=== PATIENT | female | born 1970 | race Caucasian/White ===

== ENCOUNTER → 2017-02-26 | Outpatient (CLI) | payer MEDICARE ==
[~2017-02-26] MED LIST: AMLO10TA2 PO; ASPI-496 PO; DIME50TA25 PO; HYDR200T PO; PRAV20TA2 PO; REGADENOSON 0.4 MG/5 ML SYRINGE ONE
== END | disposition home or self-care (01) ==
LOC: CFH 11:42
PROVIDERS: ATTEND Internal Medicine Cardiovascular Disease
DX: Z01.810 Encounter for preprocedural cardiovascular examination (principal); I25.10 Atherosclerotic heart disease of native coronary artery without angina pectoris; I10 Essential (primary) hypertension; R07.9 Chest pain, unspecified
CPT/HCPCS: 78452; 93017; J2785; A9502

== ENCOUNTER 2017-10-08 09:29 | Emergency (ER) | payer MEDICARE ==
[~2017-10-08] VITALS: Ht 160 cm; Wt 121.8 kg
[~2017-10-08 09:29] MED LIST changes: -REGADENOSON 0.4 MG/5 ML SYRINGE ONE
[2017-10-08 09:33] VITALS: BP 148/97
== END 2017-10-08 12:57 | disposition home or self-care (01) ==
LOC: ED 12:51
DX: S86.911A Strain of unspecified muscle(s) and tendon(s) at lower leg level, right leg, initial encounter (principal); I10 Essential (primary) hypertension; X58.XXXA Exposure to other specified factors, initial encounter; Y93.89 Activity, other specified; Y92.89 Other specified places as the place of occurrence of the external cause; Y99.9 Unspecified external cause status
CPT/HCPCS: 99284

== ENCOUNTER → 2017-11-20 | Outpatient (CLI) | payer MEDICARE | LOC: CVU 12:22 | PROVIDERS: ATTEND Internal Medicine Cardiovascular Disease | DX: I10 Essential (primary) hypertension (principal); E78.5 Hyperlipidemia, unspecified | CPT/HCPCS: 93306 ==

== ENCOUNTER 2018-01-26 18:53 | Emergency (ER) | payer MEDICARE ==
[~2018-01-26] VITALS: Ht 160 cm; Wt 123.6 kg
[~2018-01-26 18:53] MED LIST changes: -HYDR200T PO; +HYDR200T72 PO
[2018-01-26 19:36] LABS: BASOPHILS % (AUTO) 1 % (0-1); EOSINOPHILS % (AUTO) 0 % (1-7); LYMPHOCYTES % (AUTO) 24 % (22-44); MEAN CORPUSCULAR HEMOGLOBIN 29.5 pg (27.0-34.8); MEAN CORPUSCULAR HGB CONC 33.3 g/dL (32.4-35.8); MEAN CORPUSCULAR VOLUME 88.5 fL (80-100); MEAN PLATELET VOLUME 9.1 fL (7.4-10.4); MONOCYTES % (AUTO) 7 % (2-9); NEUTROPHILS # (AUTO) 5.11 x10^3/uL (1.8-6.8); NEUTROPHILS % (AUTO) 69 % (42-75); PLATELET COUNT 273 x10^3/uL (130-400); RED BLOOD COUNT 4.62 x10^6/uL (3.82-5.3); RED CELL DISTRIBUTION WIDTH 13.5 % (9.6-15.2)
[2018-01-26 19:37] LABS: BASOPHILS # (AUTO) 0.04 x10^3/uL (0-0.1); LYMPHOCYTES # (AUTO) 1.79 x10^3/uL (1-3.4); MD NO
[2018-01-26 19:49] LABS: ALBUMIN 3.3 g/dL (3.4-5.0); ANION GAP 7 mmol/L (5-15); CALCIUM 8.4 mg/dL (8.5-10.1); CHLORIDE 106 mmol/L (98-107); CREATININE 0.87 mg/dL (0.55-1.02)
[2018-01-26 19:53] LABS: TROPONIN I < 0.015 ng/mL (0.000-0.045)
[2018-01-26 19:57] VITALS: BP 116/65
== END 2018-01-26 20:49 | disposition home or self-care (01) ==
LOC: ED 19:42
DX: R07.89 Other chest pain (principal); I10 Essential (primary) hypertension
CPT/HCPCS: 36415; 71045; 80048; 82040; 84484; 85025; 93005; 99285

== ENCOUNTER 2018-09-14 09:06 | Emergency (ER) | payer MEDICARE ==
[~2018-09-14] VITALS: Ht 160 cm; Wt 128.0 kg
[~2018-09-14 09:06] MED LIST changes: -AMLO10TA2 PO; +AMLO10TA6 PO
[2018-09-14] MEDS ORDERED: ALBU0.63 NEB (09:34)
[2018-09-14 09:53] LABS: BASOPHILS # (AUTO) 0.04 x10^3/uL (0-0.1); BASOPHILS % (AUTO) 0 % (0-1); EOSINOPHILS # (AUTO) 0.02 x10^3/uL (0-0.4); EOSINOPHILS % (AUTO) 0 % (1-7); LYMPHOCYTES # (AUTO) 1.85 x10^3/uL (1-3.4); LYMPHOCYTES % (AUTO) 21 % (22-44); MD NO; MEAN CORPUSCULAR HEMOGLOBIN 29.8 pg (27.0-34.8); MEAN CORPUSCULAR HGB CONC 32.8 g/dL (32.4-35.8); MEAN CORPUSCULAR VOLUME 90.8 fL (80-100); MEAN PLATELET VOLUME 8.7 fL (7.4-10.4); MONOCYTES # (AUTO) 0.43 x10^3/uL (0.2-0.8); MONOCYTES % (AUTO) 5 % (2-9); NEUTROPHILS # (AUTO) 6.35 x10^3/uL (1.8-6.8); NEUTROPHILS % (AUTO) 73 % (42-75); PLATELET COUNT 265 x10^3/uL (130-400); RED BLOOD COUNT 4.61 x10^6/uL (3.82-5.3)
[2018-09-14 10:05] LABS: ALBUMIN 3.3 g/dL (3.4-5.0); ANION GAP 6 mmol/L (5-15); CALCIUM 8.3 mg/dL (8.5-10.1); CHLORIDE 108 mmol/L (98-107); CREATININE 0.75 mg/dL (0.55-1.02)
[2018-09-14 10:08] LABS: TROPONIN I < 0.015 ng/mL (0.000-0.045)
[2018-09-14 10:09] LABS: D-DIMER 0.31 ug/mlFEU (0.00-0.52); INTERNATIONAL NORMALIZED RATIO 0.98 (0.93-1.1); PROTHROMBIN TIME 10.4 Seconds (9.6-11.5)
[2018-09-14 10:51] VITALS: BP 115/71
== END 2018-09-14 12:02 | disposition home or self-care (01) ==
LOC: ED 10:14
DX: R06.00 Dyspnea, unspecified (principal); M54.6 Pain in thoracic spine; R07.89 Other chest pain; I10 Essential (primary) hypertension
CPT/HCPCS: 36415; 71045; 80048; 82040; 83880; 84484; 85025; 85379; 85610; 85730; 93005; 99284

== ENCOUNTER 2019-04-20 13:42 | Emergency (ER) | payer MEDICARE ==
[~2019-04-20] VITALS: Ht 160 cm; Wt 129.2 kg
[~2019-04-20 13:42] MED LIST changes: +ALBU0.63 NEB; -AMLO10TA6 PO; +AMLO10TA8 PO; -DIME50TA25 PO; +DIME50TA57 PO
[2019-04-20 14:44] LABS: BASOPHILS # (AUTO) 0.05 x10^3/uL (0-0.1); BASOPHILS % (AUTO) 1 % (0-1); EOSINOPHILS % (AUTO) 0 % (1-7); LYMPHOCYTES % (AUTO) 18 % (22-44); MD NO; MEAN CORPUSCULAR HEMOGLOBIN 30.6 pg (27.0-34.8); MEAN CORPUSCULAR HGB CONC 32.9 g/dL (32.4-35.8); MEAN CORPUSCULAR VOLUME 93.1 fL (80-100); MEAN PLATELET VOLUME 8.9 fL (7.4-10.4); MONOCYTES # (AUTO) 0.64 x10^3/uL (0.2-0.8); MONOCYTES % (AUTO) 7 % (2-9); NEUTROPHILS # (AUTO) 7.32 x10^3/uL (1.8-6.8); NEUTROPHILS % (AUTO) 75 % (42-75); PLATELET COUNT 270 x10^3/uL (130-400); RED BLOOD COUNT 4.67 x10^6/uL (3.82-5.3); RED CELL DISTRIBUTION WIDTH 13.7 % (9.6-15.2)
[2019-04-20 14:53] LABS: ALBUMIN 3.5 g/dL (3.4-5.0); ANION GAP 7 mmol/L (5-15); CALCIUM 8.9 mg/dL (8.5-10.1); CHLORIDE 108 mmol/L (98-107); CREATININE 0.93 mg/dL (0.55-1.02)
--- NOTE | 2019-04-20 15:08 | NUR ---
PT AMBULATORY TO ROOM WITH EASE. SO AT BEDSIDE.
[2019-04-20 15:17] VITALS: BP 139/85
--- NOTE | 2019-04-20 15:17 | NUR ---
PT HAS CO "NOT BEING ABLE TO BREATH HAS WELL EVEN AFTER AN INHALER" MD AT BEDSIDE. PT DOES NOT APPEAR IN DISTRESS. O2 SAT 98. VS STABLE.
--- NOTE | 2019-04-20 15:28 | NUR ---
PT AMBULATED IN [place] W RN. O2 SATS MAINTAINED BETWEEN 92-96%
--- NOTE | 2019-04-20 15:44 | NUR ---
PT SITTING UP IN [place] NOTED. RESPIRATIONS EVEN/UNLABORED. DENIES CP. DC EDUCATION PROVIDED. PT DEMONSTRATES UNDERSTANDING. PT AMBULATED STEADILY TO DC WITH RN AND SO.
== END 2019-04-20 15:46 | disposition home or self-care (01) ==
LOC: ED 15:40
DX: R06.00 Dyspnea, unspecified (principal); R53.1 Weakness; I10 Essential (primary) hypertension; Z96.649 Presence of unspecified artificial hip joint
CPT/HCPCS: 36415; 71046; 80048; 82040; 85025; 93005; 99284

== ENCOUNTER 2019-11-30 10:13 | Emergency (ER) | payer MEDICARE ==
[~2019-11-30] VITALS: Ht 160 cm; Wt 128.8 kg
[2019-11-30 10:19] VITALS: BP 123/94
--- NOTE | 2019-11-30 10:30 | NUR ---
PT TO XRAY.
--- NOTE | 2019-11-30 10:30 | NUR ---
PT HERE WITH C/O "NAGGING COUGH AND NASAL CONGESTIONS. I TOOK ANTIBIOTICS, COUGH STUFF, AND A STERIOD AND IT ISN'T HELPING."
--- NOTE | 2019-11-30 10:35 | NUR ---
PT BACK FROM XRAY.
--- NOTE | 2019-11-30 10:49 | NUR ---
ALL RESULTS BACK AT THIS TIME, CHART UP FOR RECHECK.
[2019-11-30] MEDS ORDERED: ALBUTEROL SULFATE 2.5 MG/3 ML NPPB ONE (11:00)
[2019-11-30] MEDS ORDERED: ALBUTEROL SULFATE 2.5 MG/3 ML ONE (11:07)
--- NOTE | 2019-11-30 11:15 | NUR ---
RT AT BEDSIDE FOR BREATHING TX.
--- NOTE | 2019-11-30 11:59 | NUR ---
Patient/Caregiver given discharge instructions and they have confirmed that they understand the instructions. Patient ambulatory with steady gait.
== END 2019-11-30 12:01 | disposition home or self-care (01) ==
LOC: ED 11:50
DX: J45.31 Mild persistent asthma with (acute) exacerbation (principal); B34.9 Viral infection, unspecified; I10 Essential (primary) hypertension; E78.00 Pure hypercholesterolemia, unspecified; M32.9 Systemic lupus erythematosus, unspecified; Z96.649 Presence of unspecified artificial hip joint
CPT/HCPCS: 71046; 94640; 99283; J7613

== ENCOUNTER → 2020-12-23 | Outpatient (CLI) | payer MEDICARE ==
[~2020-12-23] MED LIST changes: +AMLO-211 PO; -AMLO10TA8 PO
[2020-12-23 11:20] LABS: BASOPHILS % (AUTO) 1 % (0-1); EOSINOPHILS % (AUTO) 1 % (1-7); LYMPHOCYTES % (AUTO) 27 % (22-44); MEAN CORPUSCULAR HEMOGLOBIN 30.1 pg (27.0-34.8); MEAN CORPUSCULAR HGB CONC 33.4 g/dL (32.4-35.8); MEAN PLATELET VOLUME 9.1 fL (7.4-10.4); MONOCYTES % (AUTO) 8 % (2-9); NEUTROPHILS % (AUTO) 64 % (42-75); PLATELET COUNT 242 x10^3/uL (130-400); RED BLOOD COUNT 4.41 x10^6/uL (3.82-5.3)
[2020-12-23 11:22] LABS: ALANINE AMINOTRANSFERASE 26 U/L (12-78); ALBUMIN 3.4 g/dL (3.4-5.0); ANION GAP 6 mmol/L (5-15); CALCIUM 8.7 mg/dL (8.5-10.1); CHLORIDE 107 mmol/L (98-107); CREATININE 0.79 mg/dL (0.55-1.02)
[2020-12-23 11:25] LABS: ALKALINE PHOSPHATASE 70 U/L (45-117); BILIRUBIN,TOTAL 0.3 mg/dL (0.2-1.0); TOTAL PROTEIN 7.3 g/dL (6.4-8.2)
[2020-12-23 11:26] LABS: MD NO
== END | disposition home or self-care (01) ==
LOC: LAB 10:55
PROVIDERS: ATTEND Internal Medicine
DX: M32.10 Systemic lupus erythematosus, organ or system involvement unspecified (principal); Z79.899 Other long term (current) drug therapy
CPT/HCPCS: 36415; 80053; 85025

== ENCOUNTER → 2020-12-23 | Outpatient (CLI) | payer MEDICARE | END | disposition home or self-care (01) | LOC: STAR 09:55 | PROVIDERS: ATTEND Internal Medicine | DX: Z01.818 Encounter for other preprocedural examination (principal); Z01.812 Encounter for preprocedural laboratory examination; Z01.89 Encounter for other specified special examinations; R79.1 Abnormal coagulation profile; M32.10 Systemic lupus erythematosus, organ or system involvement unspecified; R94.31 Abnormal electrocardiogram [ECG] [EKG]; Z79.899 Other long term (current) drug therapy | CPT/HCPCS: 93005 ==

== ENCOUNTER 2021-04-27 07:42 | Emergency (ER) | payer MEDICARE ==
[~2021-04-27] VITALS: Ht 157.5 cm; Wt 135.6 kg
[2021-04-27 07:52] VITALS: BP 144/87
--- NOTE | 2021-04-27 08:30 | NUR ---
WORKFORCE SPECIALIST; PT TO ROOM FROM [facility]
--- NOTE | 2021-04-27 08:35 | NUR ---
DR REINOSO IN TO SEE PT.
== END 2021-04-27 09:28 | disposition home or self-care (01) ==
LOC: ED 09:18
DX: L03.311 Cellulitis of abdominal wall (principal); J45.909 Unspecified asthma, uncomplicated; Z96.649 Presence of unspecified artificial hip joint; I10 Essential (primary) hypertension
CPT/HCPCS: 99284